=== PATIENT | male | born 2000 | race African-American/Black ===

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

== ENCOUNTER 2020-11-14 13:28 | Emergency (ER) | payer MEDICAID, OTHER ==
[~2020-11-14] VITALS: Ht 172.7 cm; Wt 72.6 kg
[2020-11-14 13:35] VITALS: BP 119/71
[2020-11-14] MEDS ORDERED: ACETAMINOPHEN 500 MG TAB PO ONE (16:00)
== END 2020-11-14 16:37 | disposition home or self-care (01) ==
LOC: ER 13:28
DX: S39.012A Strain of muscle, fascia and tendon of lower back, initial encounter (principal); V43.62XA Car passenger injured in collision with other type car in traffic accident, initial encounter; Y93.89 Activity, other specified; Y92.410 Unspecified street and highway as the place of occurrence of the external cause; Y99.8 Other external cause status

== ENCOUNTER 2021-04-14 08:52 | Emergency (ER) | payer MEDICAID ==
[~2021-04-14] VITALS: Ht 172.7 cm; Wt 74.8 kg
[2021-04-14 09:05] VITALS: BP 131/77
== END 2021-04-14 09:56 | disposition home or self-care (01) ==
LOC: ER 08:52
DX: J45.909 Unspecified asthma, uncomplicated (principal)
CPT/HCPCS: 71045